=== PATIENT | female | born 1960 | race Caucasian/White ===

== ENCOUNTER 2016-09-01 14:06 | Emergency (ER) | payer OTHER ==
--- NOTE | 2016-09-01 16:06 | ED NURSING NOTES ---
Clinical Report - Nurses [facility] [address] [place] [address] 09/01/2016 14:08 Patient: PILO ORTA TRIAGE Chief Complaint: RIGHT EAR PAIN, SINUS CONGESTION and (pt c/o cough for 2 days with right ear pain, difficulty sleeping, denies fever at home). SEPSIS SCREEN: Sepsis Screen: negative. Infection suspected/documented. Heart rate greater than 90. --14:29 Nereyda Colon R.N. 16:12 09/01/16. BP: 130/70. HR: 101. RR: 18. O2 saturation: 99%. Temp: 99.4 F. Pain level now 7/10. --16:14 Vera Ferrell. Weight: 70.3 kg stated. Height/Length: 66 inches Per Patient. BMI: 25. --14:28 Nereyda Colon R.N. Medications None. --16:14 Vera Ferrell. Allergies No Known Drug Allergy. --16:14 Vera Ferrell. Medication/allergy information source: the patient. --14:29 Nereyda Colon R.N. History Onset. (2 days). 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 --14:29 Nereyda Colon R.N. PROBLEMS: Tendonitis. --16:14 Vera Ferrell. ADDITIONAL SURGERIES: Arm surgery L. Shoulder Surgery. Wrist surgery L. --16:14 Vera Ferrell. Interventions ID band on patient. --14:29 Nereyda Colon R.N. PHYSICAL ASSESSMENT Ambulatory to room. Patient gowned. GENERAL / NEURO / PSYCH: Alert. Appears in distress. HEENT: No facial asymmetry noted. Pupils equal, round and reactive to light. EOM intact. Nares within normal limits. RESPIRATORY: Respirations not labored. Nonproductive cough. CVS: Capillary refill less than 2 seconds. SKIN: Skin is warm and dry. --15:16 Vera Ferrell. NURSING PROGRESS NOTES Reassurance given. Call light placed in reach. Bed placed in lowest position. Brakes of bed on. Patient ready for evaluation- chart flagged. ( Pt masked). --15:17 Vera Ferrell. DISPOSITION / DISCHARGE Departure time: 1608. Condition at departure: unchanged and stable. No learning barriers present. Discharge instructions provided and reviewed with the patient. Reviewed medication(s). Patient verbalized understanding. Written instructions provided in Latvian. The patient was discharged by the nurse practitioner. She was discharged home and unaccompanied at time of discharge. She left the Emergency Department ambulatory and via private vehicle. Patient driving. --16:11 Vera Ferrell 16:10 09/01/16. BP: 109/67. HR: 100. RR: 18. O2 saturation: 99%. --16:11 Vera Ferrell. Locked/Released at 09/01/2016 16:15 by Vera Ferrell,
--- NOTE | 2016-09-01 16:06 | ED NURSING NOTES ---
Clinical Report - Nurses [facility] [address] [place] [address] 09/01/2016 14:08 Patient: PILO ORTA TRIAGE Chief Complaint: RIGHT EAR PAIN, SINUS CONGESTION and (pt c/o cough for 2 days with right ear pain, difficulty sleeping, denies fever at home). SEPSIS SCREEN: Sepsis Screen: negative. Infection suspected/documented. Heart rate greater than 90. --14:29 Nereyda Colon R.N. 16:12 09/01/16. BP: 130/70. HR: 101. RR: 18. O2 saturation: 99%. Temp: 99.4 F. Pain level now 7/10. --16:14 Vera Ferrell. Weight: 70.3 kg stated. Height/Length: 66 inches Per Patient. BMI: 25. --14:28 Nereyda Colon R.N. Medications None. --16:14 Vera Ferrell. Allergies No Known Drug Allergy. --16:14 Vera Ferrlel. Medication/allergy information source: the patient. --14:29 Nereyda Colon R.N. History Onset. (2 days). 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 --14:29 Nereyda Colon R.N. PROBLEMS: Tendonitis. --16:14 Vera Ferrell. ADDITIONAL SURGERIES: Arm surgery L. Shoulder Surgery. Wrist surgery L. --16:14 Vera Ferrell. Interventions ID band on patient. --14:29 Nereyda Colon R.N. PHYSICAL ASSESSMENT Ambulatory to room. Patient gowned. GENERAL / NEURO / PSYCH: Alert. Appears in distress. HEENT: No facial asymmetry noted. Pupils equal, round and reactive to light. EOM intact. Nares within normal limits. RESPIRATORY: Respirations not labored. Nonproductive cough. CVS: Capillary refill less than 2 seconds. SKIN: Skin is warm and dry. --15:16 Vera Ferrell. NURSING PROGRESS NOTES Reassurance given. Call light placed in reach. Bed placed in lowest position. Brakes of bed on. Patient ready for evaluation- chart flagged. ( Pt masked). --15:17 Vera Ferrell. DISPOSITION / DISCHARGE Departure time: 1608. Condition at departure: unchanged and stable. No learning barriers present. Discharge instructions provided and reviewed with the patient. Reviewed medication(s). Patient verbalized understanding. Written instructions provided in Urdu. The patient was discharged by the nurse practitioner. She was discharged home and unaccompanied at time of discharge. She left the Emergency Department ambulatory and via private vehicle. Patient driving. --16:11 Vera Ferrell 16:10 09/01/16. BP: 109/67. HR: 100. RR: 18. O2 saturation: 99%. --16:11 Vera Ferrell. Locked/Released at 09/01/2016 16:15 by Vera Ferrell,
--- NOTE | 2016-09-01 16:06 | ED CLINICAL REPORT ---
Clinical Report - Physicians/Mid Levels [facility] [address] [place] [address] 09/01/2016 14:08 Patient: PILO ORTA Time Seen: 15:57. Arrived- By private vehicle. Historian- patient. HISTORY OF PRESENT ILLNESS Chief Complaint: COUGH, SORE THROAT and CHILLS. EAR ACHE. This started 2 days ago and is still present. The illness is described as moderate. The patient has had a cough, a sore throat, hoarseness, nasal congestion and ear pain. No sputum production, difficulty breathing, chest pain, fever or chills. Additional history - No known contact with a sick individual. No recent travel. Similar symptoms previously: None. Recent medical care: Not recently seen/assessed. REVIEW OF SYSTEMS No headache, eye discomfort, nausea, vomiting or diarrhea. No skin rash or enlarged lymph nodes. Denies current . PAST HISTORY See nurses notes. Diabetes mellitus. Surgeries: (upper extremity surgery). SOCIAL HISTORY Smoker - current status unknown. ADDITIONAL NOTES The nursing notes have been reviewed. PHYSICAL EXAM Vital Signs: 09/01/2016 16:12 BP: 130/70. HR: 101. RR: 18. O2 saturation: 99%. Temp: 99.4 F. Have been reviewed and appear to be correct. Appearance: Alert. No acute distress. Head: No tenderness to palpation/percussion over the sinuses. Eyes: Pupils equal, round and reactive to light. Eyes normal inspection. ENT: Moderate generalized pharyngeal erythema. No right tonsillar exudate, right tonsillar swelling, left tonsillar exudate or left tonsillar swelling. No nasal discharge, muffled or hoarse voice, trismus or trouble handling secretions. Neck: Normal inspection. Mild right anterior neck and mild left anterior neck lymphadenopathy present. Neck supple. CVS: Normal heart rate and rhythm. Heart sounds normal. Respiratory: No respiratory distress. Breath sounds normal. Skin: Skin warm and dry. Normal skin color. Normal skin turgor. Neuro: Oriented X 3. PROGRESS AND PROCEDURES Course of Care: No evidence of sepsis. Approp for outpt care. Patient is stable. Patient counseled in person regarding the patient's condition, diagnosis and need for follow-up. Disposition: Discharged. Condition: stable. CLINICAL IMPRESSION Acute suppurative right otitis media; acute suppurative left otitis media. No perforation of right tympanic membrane. No perforation of left tympanic membrane. Acute viral (presumed) upper respiratory infection. No airway obstruction. INSTRUCTIONS Drink plenty of fluids. (You may take acetaminophen (tylenol) -2 tabs up to 3 times a day for pain or fever. You may add ibuprofen OR naproxen per bottle directions if needed. Saltwater gargles, chloraseptic spray or lozenges advised for throat. Cold thick liquids, or warm thicker soups go down easier.). Warnings: GENERAL WARNINGS: Return or contact your physician immediately if your condition worsens or changes unexpectedly, if not improving as expected, or if other problems arise. Prescription Medications: Albuterol HFA oral inhaler: inhale 2 puffs every 4 hours as needed for wheezing or difficulty breathing, until symptoms improve. Dispense one (1) unit. No refill. Tessalon Perles 100 mg: take 1 orally every 8 hours as needed for cough. Dispense thirty (30). No refills. Zithromax Z-Jatin 250 mg tablets: take 2 orally today, followed by 1 orally every day for the next 4 days. Total course 5 days. No refills. Follow-up: Follow up with your doctor in about one week if not better. Summary of care provided to patient. Understanding of the discharge instructions verbalized by patient. (Electronically signed by Dorina Lopez A.R.N.P. 09/01/2016 18:11)
--- NOTE | 2016-09-01 18:12 | ED DISCHARGE INSTRUCTIONS ---
Patient: PILO ORTA General Instructions [facility] VisitID: [id number] [address] [place] [address] 56y, F Registration Date/Time: 09/01/2016 Acute suppurative right otitis media; acute suppurative left otitis media. No perforation of right tympanic membrane. No perforation of left tympanic membrane. Acute viral (presumed) upper respiratory infection. No airway obstruction. INSTRUCTIONS Drink plenty of fluids. (You may take acetaminophen (tylenol) -2 tabs up to 3 times a day for pain or fever. You may add ibuprofen OR naproxen per bottle directions if needed. Saltwater gargles, chloraseptic spray or lozenges advised for throat. Cold thick liquids, or warm thicker soups go down easier.). Warnings: GENERAL WARNINGS: Return or contact your physician immediately if your condition worsens or changes unexpectedly, if not improving as expected, or if other problems arise. Prescription Medications: Albuterol HFA oral inhaler: inhale 2 puffs every 4 hours as needed for wheezing or difficulty breathing, until symptoms improve. Dispense one (1) unit. No refill. Tessalon Perles 100 mg: take 1 orally every 8 hours as needed for cough. Dispense thirty (30). No refills. Zithromax Z-Jatin 250 mg tablets: take 2 orally today, followed by 1 orally every day for the next 4 days. Total course 5 days. No refills. Follow-up: Follow up with your doctor in about one week if not better. Summary of care provided to patient. Understanding of the discharge instructions verbalized by patient. ADDITIONAL INFORMATION Viral Respiratory Illness W/ Wheezing [Adult] You have an Upper Respiratory Illness (URI) caused by a virus. This illness is contagious during the first few days. It is spread through the air by coughing and sneezing or by direct contact (touching the sick person and then touching your own eyes, nose or mouth). When the infection causes a lot of irritation, the air passages can go into spasm. This causes wheezing and shortness of breath. Most viral illnesses resolve within 7-10 days with rest and simple home remedies, although the illness may sometimes last for several weeks. Antibiotics will not kill a virus and are generally not prescribed for this condition. Home Care: If symptoms are severe, rest at home for the first 2-3 days. When resuming activity, don't let yourself become overly tired. Avoid exposure to cigarette smoke (yours or others). You may use acetaminophen (Tylenol) or ibuprofen (Motrin, Advil) to control pain, unless another medicine was prescribed. [NOTE: If you have chronic liver or kidney disease or ever had a stomach ulcer or GI bleeding, talk with your doctor before using these medicines.] (Aspirin should never be used in anyone under 18 years of age who is ill with a fever. It may cause severe liver damage.) Your appetite may be poor so a light diet is fine. Avoid dehydration by drinking 6-8 glasses of fluids per day (water, soft drinks, juices, tea, soup). Extra fluids will help loosen secretions in the nose and lungs. [id number] cold medicines will not shorten the duration of the illness, but may be helpful for the following symptoms: cough (Robitussin DM); sore throat (Chloraseptic lozenges or spray); nasal and sinus congestion (Actifed or Sudafed). [NOTE: Do not use decongestants if you have high blood pressure.] Follow Up with your doctor or as advised if you are not improving over the next week. Get Prompt Medical Attention if any of the following occur: Cough with lots of colored sputum (mucus) or blood in your sputum Chest pain, shortness of breath, wheezing or difficulty breathing Severe headache; face, neck or ear pain Fever of 100.4F (38C) or higher, or as directed by your healthcare provider Unable to swallow due to throat pain Middle Ear Infection (Adult) You have an infection of the middle ear (the space behind the eardrum). It can occur as a result of the common cold. This is because congestion can block the internal passage (eustachian tube) that drains fluid from the middle ear. When the middle ear fills with fluid, bacteria can grow there and cause an infection. Oral antibiotics are used to treat this illness, not ear drops. Symptoms usually start to improve within 1-2 days of treatment. Home Care: Finish all of the antibiotic medicine prescribed, even though you may feel better after the first few days. You may use acetaminophen (Tylenol) or ibuprofen (Motrin, Advil) to control pain, unless something else was prescribed. [NOTE: If you have chronic liver or kidney disease or have ever had a stomach ulcer or GI bleeding, talk with your doctor before using these medicines.] (Do not give aspirin to anyone under 18 years of age who is ill with a fever. It may cause severe liver damage.) Follow Up with your doctor or this facility in two weeks if all symptoms have not cleared, or if hearing does not return to normal within one month. Get Prompt Medical Attention if any of the following occur: Ear pain gets worse or does not improve after three days of treatment Unusual drowsiness or confusion Neck pain, stiff neck or headache Fluid or blood draining from the ear canal Fever of 100.4F (38C) or higher after 3 days of antibiotics, or as directed by your healthcare provider Convulsion (seizure) You have been given the following additional information: Uri, Viral W/ Wheezing (Adult) Otitis Media, Abx Tx (Adult) (Electronically signed by Dorina Lopez A.R.N.P. 09/01/2016 18:11)
--- NOTE | 2016-09-01 18:12 | ED MAR SUMMARY ---
..... Medication Administration Record [facility] [address] [place], [place] [id number] Patient: PILO ORTA Visit ID: [id number] 56y, F Weight: 70.3 kg Height/Length: 66 in BMI: 25 ALLERGIES: No Known Drug Allergy
--- NOTE | 2016-09-01 18:12 | ED MED RECONCILIATION SUMMARY ---
Patient: PILO ORTA Medication Reconciliation Report [facility] VisitID: [id number] [address] [place] [address] 56y, F Registration Date/Time: 09/01/2016 Weight: 70.3 kg Height/Length: 66 in. BMI: 25.0 ALLERGIES: No Known Drug Allergy The patient's Home Medications are listed below: NONE. The source(s) of the original Home Medication information: patient The following Medications were given to the patient in the Emergency Department: None. The following Medications were prescribed to the patient: Albuterol HFA oral inhaler: inhale 2 puffs every 4 hours as needed for wheezing or difficulty breathing, until symptoms improve. Dispense one (1) unit. No refill. -- Dorina Lopez A.R.N.P. Tessalon Perles 100 mg: take 1 orally every 8 hours as needed for cough. Dispense thirty (30). No refills. -- Dorina Lopez A.R.N.PRito Zithromax Z-Jatin 250 mg tablets: take 2 orally today, followed by 1 orally every day for the next 4 days. Total course 5 days. No refills. -- Dorina Lopez A.R.N.PRito
--- NOTE | 2016-09-01 18:12 | ED MAR SUMMARY ---
..... Medication Administration Record [facility] [address], [place] [id number] Patient: PILO ORTA Visit ID: [id number] 56y, F Weight: 70.3 kg Height/Length: 66 in BMI: 25 ALLERGIES: No Known Drug Allergy
--- NOTE | 2016-09-01 18:12 | ED MED RECONCILIATION SUMMARY ---
Patient: PILO ORTA Medication Reconciliation Report [facility] VisitID: [id number] [address] [place] [address] 56y, F Registration Date/Time: 09/01/2016 Weight: 70.3 kg Height/Length: 66 in. BMI: 25.0 ALLERGIES: No Known Drug Allergy The patient's Home Medications are listed below: NONE. The source(s) of the original Home Medication information: patient The following Medications were given to the patient in the Emergency Department: None. The following Medications were prescribed to the patient: Albuterol HFA oral inhaler: inhale 2 puffs every 4 hours as needed for wheezing or difficulty breathing, until symptoms improve. Dispense one (1) unit. No refill. -- Dorina Lopez A.R.N.P. Tessalon Perles 100 mg: take 1 orally every 8 hours as needed for cough. Dispense thirty (30). No refills. -- Dorina Lopez A.R.N.PRito Zithromax Z-Jatin 250 mg tablets: take 2 orally today, followed by 1 orally every day for the next 4 days. Total course 5 days. No refills. -- Dorina Lopez A.R.N.PRito
== END 2016-09-01 16:08 | disposition home or self-care (01) ==
LOC: ED SRH 14:06
DX: H66.003 Acute suppurative otitis media without spontaneous rupture of ear drum, bilateral (principal); J06.9 Acute upper respiratory infection, unspecified